=== PATIENT | female | born 1975 | race African-American/Black ===

== ENCOUNTER 2025-11-15 16:45 | Emergency (ER) | payer SELFPAY ==
[2025-11-15 16:54] VITALS: BP 187/94; PULSE 101; RESP 18; TEMP 36.3; O2SAT 98; BMI 42.9
--- NOTE | 2025-11-15 17:14 | ECG_ITS ---
Test Reason : MED CLEAR Blood Pressure : */* mmHG Vent. Rate : 93 BPM Atrial Rate : 93 BPM P-R Int : 156 ms QRS Dur : 82 ms QT Int : 390 ms P-R-T Axes : 47 13 43 degrees QTcB Int : 484 ms Sinus rhythm with marked sinus arrhythmia Nonspecific ST abnormality Prolonged QT Abnormal ECG No previous ECGs available Referred By: Dorota Santamaria Electronically Signed By: REMINGTON GRAYSON MD
--- NOTE | 2025-11-15 17:14 | ED.GENADULT ---
HPI - General Adult General Chief complaint: Behavioral Concerns Stated complaint: Psych eval Time Seen by Provider: 11/15/25 17:13 Source: patient and family (patient's son and mother) Mode of arrival: ambulatory Limitations: no limitations History of Present Illness ED Provider: Dorota Santamaria PA-C HPI narrative: Patient is a 50 year old female with a history of bipolar disorder presenting to the emergency department today with concerns of behavior changes. Patient's family states that the patient has bipolar disorder and was on medication when living in [place]. Patient's family states that the patient has been off of her medication for approximately 1 year and has not established care since being in the [facility]. Patient denies any thoughts of hurting herself or others. Patient's family states that the patient has been acting erratically since yesterday and they are concerned it is her Bipolar disorder. Related Data Allergies Allergy/AdvReac Type Severity Reaction Status Date / Time No Known Allergies Allergy Verified 11/15/25 16:57 Review of Systems Constitutional: Constitutional: Reports as per HPI Eyes: Eyes: Reports as per HPI ENT: Reports as per HPI Cardiovascular: Cardiovascular: Reports as per HPI Respiratory: Respiratory: Reports as per HPI Gastrointestinal: Gastrointestinal: Reports as per HPI Genitourinary: Genitourinary: Reports as per HPI Musculoskeletal: Musculoskeletal: Reports as per HPI Integumentary/Breasts: Skin/Breast: Reports as per HPI Neurologic: Reports as per HPI Psychiatric: Psychiatric: Reports as per HPI Endocrine: Endocrine: Reports as per HPI Hematologic/Lymphatic: Hematologic/Lymphatic: Reports as per HPI Allergic/Immunologic: Allergic/Immunologic: Reports as per HPI [facility] Past Medical History Attestation statement: The following information was validated with the patient. (all information validated with the patient's son and mother) Source: old records reviewed, obtained from family (patient's son and mother provided additional history) and nursing notes reviewed Social History Social History Unable to assess alcohol history related to: Unknown Smoked in Last 30 Days: No Use of substances other than those prescribed or required for medical reasons: Unknown Advance Directives: No Advance Directives Information Provided: No Do you have a plan to hurt others: No Plan Physical Exam ED Vital Signs: Vital Signs - 24 hr 11/15/25 16:54 11/15/25 20:32 11/16/25 06:50 Temperature 97.3 F 97.1 F 99.2 F Pulse Rate 101 H 112 H 108 H Respiratory Rate 18 17 16 Blood Pressure 187/94 H 150/86 H 189/93 H Pulse Oximetry 98 100 100 Oxygen Delivery Method Room Air Room Air Room Air 11/16/25 10:12 Temperature 99.2 F Pulse Rate 108 H Respiratory Rate 16 Blood Pressure 189/93 H Pulse Oximetry 100 Oxygen Delivery Method Room Air BMI result Body Mass Index 42.9 Const General: cooperative, alert and awake Orientation/consciousness: patient oriented x3 HENMT Head: Yes normal to inspection and Yes atraumatic Ears: hearing grossly normal bilaterally and external ears normal General nose exam: Normal external nose present, no nasal discharge noted and no epistaxis Face and sinus: Yes normal facial exam, No abrasion and No laceration Mouth: Normal oral and palatal mucosa present, no drooling and no muffled voice Eyes General: appearance normal, both eyes and all related structures Periorbital: periorbital findings normal Eyelids: Yes eyelids normal Conjunctivae: conjunctivae normal Pupils: Equal, round and reactive pupils present EOM: EOMs intact bilaterally Resp Effort & Inspection: normal respiratory effort and able to speak in complete sentences Neuro General: patient oriented x3, moves all extremities and CN's II-XI intact bilaterally Cranial nerves: Yes Equal, round and reactive pupils present Cognition (Neuro): normal cognition Extrem General: Yes full ROM Psych Appearance: grossly normal Mental Status: mental status grossly normal Affect: Blunted affect present Course Course Course Narrative: 3:38 AM 11/16/2025 (Jeimy Pham DO): Was called over the pod emergently. Patient was agitated yelling I want to get out of here. Banging on doors. She is making nonsensical statements. Proceeded to yell Bombaclot. Started to aggressively position herself and swing her arms around. At this time security intervened. Patient brought back to room and placed in 4 points restraints for her safety and staff safety. IM medication ordered Valium and Haldol. Will continue to observe patient until she have calm down. Patient appears to have psychosis on my evaluation. Reevaluation(s) Reevaluation #1: 9:44 AM 11/16/2025 (Maya Pro MD): The patient was seen by the care team this morning. The patient was judged to not require inpatient level of care. The patient has not wish to be hospitalized and she does not seem to have safety concerns at home. The patient's family does not have safety concerns. I went to see the patient. She is comfortable with the prospect of being discharged and does not feel she will be a danger to herself or others. The care team has made a referral to [facility] for outpatient services. Time: 09:45 Medications Administered Discontinued Medications Generic Name Dose Route Start Last Admin Trade Name Kayode PRN Reason Stop Dose Admin Diazepam 5 mg 11/15/25 18:40 11/15/25 18:44 Diazepam 10 Mg/2 Ml Cartridge IM 11/15/25 18:41 5 mg STAT STA Administration Diazepam 10 mg 11/16/25 00:28 11/16/25 00:35 Diazepam 10 Mg/2 Ml Cartridge IM 11/16/25 00:29 10 mg STAT STA Administration Haloperidol Lactate 5 mg 11/16/25 00:28 11/16/25 00:35 Haloperidol Lactate 5 Mg/Ml Vial IM 11/16/25 00:29 5 mg ONCE ONE Administration Lorazepam 2 mg 11/16/25 05:20 11/16/25 05:25 Lorazepam 1 Mg Tablet PO 11/16/25 05:21 2 mg ONCE ONE Administration Olanzapine 5 mg 11/15/25 18:40 11/15/25 18:43 Olanzapine 10 Mg Vial IM 11/15/25 18:41 5 mg ONCE ONE Administration Medical Decision Making Medical Decision Making [facility] Narrative: Patient is a 50 year old female with a history of bipolar disorder presenting to the emergency department today with concerns of behavior changes. Patient's physical exam was as noted in the physical exam portion of this note. Patient's blood work is pending. Patient's urine is pending. 1828 I was priority alerted by nursing that the patient was becoming acutely agitated, yelling, striking the haley in her room. I attempted to speak with the patient and it became obvious the patient was talking in circles, obsessed with the phrase her mother used taking you to the hospital because you are acting strangely . Patient continued demanding more explanation around what acting strangely meant. I attempted to explain the strange actions described several times to her and she continually interrupted and circled back to the same statement. Given patient continued to escalate and become more verbally / physically aggressive, she was given IM Zyprexa and Valium. Patient signed out to Dr. Pham pending lab work + UA + CARE team evaluation. Differential Diagnosis Differential Diagnoses: The differential diagnosis associated with the presentation includes Bipolar disorder Decompensated mental health Medication non-compliance Admission/Observation Consideration of admission/observation: Escalation of care including admission/observation considered Patient's disposition will be determined after CARE Team evaluation and lab results. Lab Data 11/15/25 20:16 11/15/25 20:16 Labs: Lab Results 11/15/25 11/15/25 Range/Units 18:51 20:16 WBC 12.3 H (4.8-10.8) X10*3/uL RBC 4.36 (4.20-5.50) X10*6/uL Hgb 12.9 (12.0-16.0) g/dl Hct 38.8 (37.0-47.0) % MCV 89.0 (80.0-98.0) fL MCH 29.6 (27.0-33.0) pg MCHC 33.2 (31.0-35.0) g/dl RDW 14.6 (11.0-16.0) % Plt Count 377 (160-400) X10*3/uL MPV 10.9 (9.4-12.3) fL Immature Gran % (Auto) 0.2 (0.0-0.4) % Neut % (Auto) 67.5 (45-73) % Lymph % (Auto) 19.8 L (20-40) % Hartley % (Auto) 12.2 H (2-11) % Eos % (Auto) 0.1 (0-4) % Baso % (Auto) 0.2 (0-2) % Lymph # (Auto) 2.4 (1.2-4.9) X10*3/uL Hartley # (Auto) 1.5 H (0.1-1.2) X10*3/uL Eos # (Auto) 0.0 (0.0-0.4) X10*3/uL Baso # (Auto) 0.0 (0.0-0.2) X10*3/uL Abs Immat Gran (auto) 0.03 (0.00-0.03) X10*3/uL Absolute Neuts (auto) 8.3 (2.0-8.3) x10*3/uL Absolute Nucleated RBC 0.000 (0.0-0.012) X10*3/uL Nucleated RBC % (auto) 0.0 (0.0-0.2) /100WBC Sodium 140 (135-145) mmol/L Potassium 3.3 (3.3-5.1) mmol/L Chloride 105 (96-108) mmol/L Carbon Dioxide 24 (22-29) mmol/L Anion Gap 14 (12-20) BUN 8 L (9-16) mg/dL Creatinine 0.70 (0.5-1.4) mg/dL Estim Creat Clear Calc 124.3 Estimated GFR > 60 Random Glucose 107 (60-115) mg/dL Calcium 9.6 (8.4-10.2) mg/dL Total Bilirubin 0.4 (0.0-1.0) mg/dL AST 22 (5-31) U/L ALT 13 (0-31) U/L Alkaline Phosphatase 67 (39-117) U/L Total Protein 8.0 (6.5-8.0) g/dL Albumin 4.5 (3.5-5.0) g/dL Urine Color Red A Urine Appearance Clear Urine pH 6.5 (5.0-9.0) Ur Specific [place] 1.010 (1.005-1.025) Urine Protein 100 (2+) H (Neg-Trace) mg/dL Urine Glucose (UA) Negative (Negative) mg/dL Urine Ketones Negative (Negative) mg/dL Urine Blood Large (3+) H (Negative) Urine Nitrite Negative (Negative) Ur Leukocyte Esterase Trace H (Negative) Urine RBC >20 H (0-2) /HPF Urine WBC 0-5 (0-5) /HPF Ur Squamous Epith Cells 3-5 (0-2) /HPF Urine Bacteria Trace (None Seen) Hyaline Casts 0-2 (0-2) /LPF Urine Test NEGATIVE (NEGATIVE) Urine Opiates Screen Not Detected (Not Detect) Ur Buprenorphine Scrn Not Detected (Not Detect) ng/mL Ur Oxycodone Screen Not Detected (Not Detect) ng/mL Urine Methadone Screen Not Detected (Not Detect) ng/mL Urine Fentanyl Screen Not Detected (Not Detect) Ur Barbiturates Screen Not Detected (Not Detect) Ur Phencyclidine Scrn Not Detected (Not Detect) Ur Amphetamines Screen Not Detected (Not Detect) U Benzodiazepines Scrn Not Detected (Not Detect) Urine Cocaine Screen Not Detected (Not Detect) U Marijuana (THC) Screen Not Detected (Not Detect) Ethyl Alcohol < 10 mg/dL Independent Historian Clinical information obtained from an independent historian. History obtained from or confirmed by: Other (patient's mother and son provided additional history) Critical Care Time Critical Care Time Critical Care Time: Yes Total Critical Care Time: 37 Attestation: I spent 37 minutes of Critical Care Time with this patient. This does not include time spent on separately reported billable procedures. Discharge Plan Discharge Clinical Impression: Bipolar disorder, Agitation Patient Disposition: Home, Self-Care Additional Instructions: The counselors here at the emergency room made referrals to the [employer] [facility] [employer] ([facility]) to get you assistance as an outpatient. You should be getting a call from [facility] in the next couple of days. If you do not hear from them by Monday please contact [facility] directly using the phone number provided or you may go directly to the clinic itself in [place]. Additionally please work on getting a new primary care provider. Contact information for several local primary care offices has been provided. You were seen in our Emergency Department today for treatment of a behavioral health issue. It is important after your visit that you follow up with either your behavioral health provider or a primary care doctor within 7 days.? If you have trouble finding a therapist you can reach out to [address] [phone] The National Suicide and Crisis Lifeline can be reached 7 days a week 24 hours a day.? Call 988 to speak with someone.? Return for any worsening symptoms or concerns such as thoughts of self harm or harm to others. Please call 911 if you feel your mental health is worsening.? Referrals: [facility] [Provider Group] [facility] [place] [Provider Group, Internal Medicine[facility], [facility] [Provider Group, Primary Care] [facility] [Outside] Rosa Daniels MD [Physician, Internal Medicine] Interventions: ED Discharge Assessment Last Done: 11/16/25 10:12 Discharge Date/Time: 11/16/25 10:12 Print Language: Guyanese
--- NOTE | 2025-11-15 17:59 | PC.NURSE ---
Pt's son at bedside - per son pt has been not taking her meds for close to a year. reports she is agitated and not acting normally at home, has no insight into the state of her mental health.
--- NOTE | 2025-11-15 18:41 | PC.NURSE ---
Pt becoming agitated, yelling, banging on haley, not able to be redirected. IM medications given with assitance from security. pt did not require physical restraints, took shots willingly.
[2025-11-15] MEDS: OLANZapine 10 MG VIAL 5 MG IM (18:43)
[2025-11-15] MEDS: diazePAM 10 MG/2 ML CARTRIDGE 5 MG IM (18:44)
[2025-11-15 19:02] LABS: UPreg QC Valid YES
[2025-11-15 19:03] LABS: Appearance Urine Clear; Glucose Urine UA Negative (Negative); PH 6.5 (5.0-9.0); Specific Gravity - Urine 1.010 (1.005-1.025); UMIC TRIGGER UA YES
[2025-11-15 19:12] LABS: Cannabinoid Screen Urine Not Detected (Not Detect)
[2025-11-15 20:24] LABS: Hematocrit 38.8 % (37.0-47.0); Hemoglobin 12.9 g/dl (12.0-16.0); Imm Gran Abs Auto 0.03 X10*3/uL (0.00-0.03); Imm Gran Pct Auto 0.2 % (0.0-0.4); Lymphocytes Absolute Auto 2.4 X10*3/uL (1.2-4.9); MANUAL DIFF FLAG NO; Mean Corpuscular HGB Conc 33.2 g/dl (31.0-35.0); Mean Corpuscular Hemoglobin 29.6 pg (27.0-33.0); Mean Corpuscular Volume 89.0 fL (80.0-98.0); NRBC Abs Auto 0.000 X10*3/uL (0.0-0.012); NRBC Pct Auto 0.0 /100WBC (0.0-0.2); Platelet Count 377 X10*3/uL (160-400); Red Blood Count 4.36 X10*6/uL (4.20-5.50); White Blood Count 12.3 X10*3/uL (4.8-10.8)
[2025-11-15 20:32] VITALS: BP 150/86; PULSE 112; RESP 17; TEMP 36.2; O2SAT 100
--- NOTE | 2025-11-15 20:37 | PC.NURSE ---
assumed care for pt at 1930. pt lying in bed quietly. pt allowed VS to be taken. aotund 1999 pt noted to try and get into another pts room. pt able to be redirected to room. pt continues to come out of room asking when she is going home, explained to pt she needs to meet with provider and care team. asked pt if needs were met at this time and she said yes. pt in room at this time lying quietly.
[2025-11-15 20:39] LABS: Alanine Aminotransferase 13 U/L (0-31); Albumin Level 4.5 g/dL (3.5-5.0); Alkaline Phosphatase 67 U/L (39-117); Anion Gap 14 (12-20); Aspartate Amino Transferase 22 U/L (5-31); Blood Urea Nitrogen 8 mg/dL (9-16); Calcium 9.6 mg/dL (8.4-10.2); Carbon Dioxide 24 mmol/L (22-29); Chloride 105 mmol/L (96-108); Creatinine Clr Calc Pharmacy 124.3; Estimated Glomerular Filt Rate > 60; Potassium 3.3 mmol/L (3.3-5.1); Sodium 140 mmol/L (135-145); Total Protein 8.0 g/dL (6.5-8.0)
[2025-11-16] MEDS: diazePAM 10 MG/2 ML CARTRIDGE IM (00:35)
--- NOTE | 2025-11-16 04:39 | PC.NURSE ---
Approximately 0000, pt noted to leave room multiple times to use the restroom. Upon returning to her room, pt repeatedly asked the same questions regarding when breakfast would be served, when she could leave, why she was unable to leave, etc. Despite questions being answered patient continued to reask the same questions and stated she did not remember prior conversations. Pt became increasingly restless, repeatedly exiting her room despite redirection and demonstrating exit seeking behavior. Provider Pham made aware of pts behavior. Medications were ordered, security was present, and patient was medicated per order. Despite medication administration pt continued attempts to leave the unit, wandering the halls yelling, and attempting to enter 6 room. Pt was also observed pounding on the haley and [facility] door. MD and security present at bedside, physical restraints applied to pt due to unsafe behavior. [id number]- patient remained in restraints. Pt was calm and cooperative but remained significantly disoriented and confused. Despite repeated education and explanation regarding the purpose of the restraints, pt continued to ask why she was restrained and made attempts to remove restraints. Pt repeatedly stated she did not remember the events or education. While in restraints pts needs were met, pt used bed de leon per request and water given. 0255- trial release of restraints initiated. pt educated on the trial release process and appeared agreeable and verbalized understanding. [id number]- pt remained calm and cooperative throughout the trial release. Security remained present. Pt currently resting comfortably in bed with eyes closed. Chest rise and fall symmetrical, respirations even and unlabored. No acute distress noted. plan of care ongoing
[2025-11-16 06:50] VITALS: BP 189/93; PULSE 108; RESP 16; TEMP 37.3; O2SAT 100
--- NOTE | 2025-11-16 08:00 | PC.NURSE ---
Patient's sons (Usama & Sandip) at bedside visiting the patient. Patient is currently awake, calm/cooperative.
[2025-11-16 10:12] VITALS: BP 189/93; PULSE 108; RESP 16; TEMP 37.3; O2SAT 100
== END 2025-11-16 10:12 | disposition home or self-care (01) ==
PROVIDERS: Emergency Medicine; Emergency Provider Student in an Organized Health Care Education/Training Program
DX: F31.9 Bipolar disorder, unspecified (principal); R45.1 Restlessness and agitation
CPT/HCPCS: 36415; 80053; 80307; 81001; 81003; 81025; 85025; 93005; 96372; 99284; 99285; J1630; J2359; J3360; S9485

== ENCOUNTER → 2025-11-15 17:14 | Outpatient (BNV) | payer SELFPAY | PROVIDERS: Emergency Provider Student in an Organized Health Care Education/Training Program; Visit Provider Internal Medicine Cardiovascular Disease | DX: I49.8 Other specified cardiac arrhythmias (principal) | CPT/HCPCS: 93010 ==